=== PATIENT | female | born 1990 | race Caucasian/White ===

== ENCOUNTER 2023-03-08 01:20 | Emergency (ER) | payer BC, MEDICAID ==
[~2023-03-08] VITALS: Ht 167.6 cm; Wt 77.1 kg
--- NOTE | 2023-03-08 01:20 | NUR ---
pt dariela ly for medical clearance, placed in chair by officers
[2023-03-08 01:23] VITALS: BP_SYST 147; BP_SYST 159; BP_DIAS 94; PULSE 98; RESP 14; TEMP 97.4; O2SAT 100
--- NOTE | 2023-03-08 01:58 | NUR ---
Dr. Mcgovern is examinng the patient
[2023-03-08 02:10] VITALS: BP 159/94; PULSE 98; RESP 14; TEMP 97.4; O2SAT 100
--- NOTE | 2023-03-08 02:11 | NUR ---
PATIENT BIB [facility] POLICE DEPT. PATIENT EXAMINED BY DR. ALEXANDER . PATIENT MEDICALLY CLEARED AND RELEASED IN CUSTODY IN STABLE CONDITION. ORIGINAL PRE-BOOK FORM GIVEN TO OFFICER #[id number].Patient discharged with v/s stable. Written and verbal after care instructions given and explained. Patient verbalized understanding. Police with in custody. All questions addressed prior to discharge. Advised to follow up with PMD.
== END 2023-03-08 02:11 ==
LOC: MED 01:20
DX: S20.212A Contusion of left front wall of thorax, initial encounter (principal); V49.88XA Car occupant (driver) (passenger) injured in other specified transport accidents, initial encounter; Y93.89 Activity, other specified; Y92.89 Other specified places as the place of occurrence of the external cause; Y99.8 Other external cause status
CPT/HCPCS: 99283